=== PATIENT | female | born 1965 | race Caucasian/White ===

== ENCOUNTER → 2018-04-08 | Outpatient (CLI) | payer BC ==
--- NOTE | 2018-04-08 10:16 | MR ---
EXAMINATION TYPE: MR hand RT wo con DATE OF EXAM: 04/08/2018 COMPARISON: None HISTORY: Ring Finger pain / Mass for 2.5 months per patient and order. No injury. Standard multiplanar, multisequence MRI departmental protocol Multiplanar, multisequence images of the right hand were acquired. FINDINGS: Bone marrow signal intensity is fairly well preserved throughout the visualized portions of hand including metacarpals and phalanges. Mild to moderate joint space loss throughout the phalanges is present. No significant spurring is present. A vitamin E marker is placed at level of palpable abnormality radial aspect fourth finger at level of DIP joint. There is loss of normal subcutaneous fat at this level with vague area of T1 hypointensit y and T2 hyperintensity seen on coronal images 7 and 8 measuring 5 mm long axis parallel to the phala nges, it measures roughly 3.5 x 2.0 mm axial image 21. No adjacent cortical disruption identified. Ev aluation noted suboptimal due to large pyrki-yr-faey and lack of IV contrast. Remainder of the hand shows no additional suspicious soft tissue lesions. No worrisome fluid collecti ons are identified. IMPRESSION: Suboptimal study with small subcutaneous lesion radial aspect fourth DIP joint corresponding to palpa ble abnormality as detailed above favored nonaggressive or benign. Consider orthopedic hand records specialist to further assess. Consider MRI imaging surveillance especially if lesion grows.
== END | disposition home or self-care (01) ==
LOC: RADMRIMAIN 08:33
PROVIDERS: ATTEND Orthopaedic Surgery
DX: M25.841 Other specified joint disorders, right hand (principal)

== ENCOUNTER → 2018-09-04 | Outpatient (CLI) | payer BC ==
[2018-09-04 14:21] LABS: Basophils # (A) 0.1 k/uL (0-0.2); Basophils % (A) 1 %; Eosinophils # (A) 0.1 k/uL (0-0.7); Eosinophils % (A) 1 %; HCT 39.2 % (34.0-46.0); HGB 13.1 gm/dL (11.4-16.0); Lymphocytes # (A) 1.3 k/uL (1.0-4.8); Lymphocytes % (A) 13 %; MCH 32.1 pg (25.0-35.0); MCHC 33.4 g/dL (31.0-37.0); MCV 96.2 fL (80.0-100.0); Mean Platelet Volume 6.4; Monocytes # (A) 0.3 k/uL (0-1.0); Monocytes % (A) 3 %; Neutrophils # (A) 8.2 k/uL (1.3-7.7); Neutrophils % (A) 82 %; Platelet Count 293 k/uL (150-450); RBC 4.08 m/uL (3.80-5.40); RDW 11.7 % (11.5-15.5)
== END | disposition home or self-care (01) ==
LOC: LABPAT 13:38
PROVIDERS: ATTEND Surgery
DX: Z01.812 Encounter for preprocedural laboratory examination (principal); K43.0 Incisional hernia with obstruction, without gangrene
CPT/HCPCS: 36415; 85025; 86850; 86900; 86901

== ENCOUNTER 2018-09-13 08:03 | Day surgery (SDC) | payer BC ==
[2018-09-12 10:56] VITALS: BMI 38.0
[~2018-09-13 08:03] MED LIST: HEPARIN SODIUM,PORCINE 5,000 UNIT/ML 1 ML VIAL SQ ONE; ceFAZolin IN SWFI 2 GM/20 ML SYRINGE IVP ONE
[2018-09-13] MEDS ORDERED: MORPHINE SULFATE 2 MG/ML SYRINGE IV PRN (08:46)
[2018-09-13] MEDS ORDERED: ONDANSETRON 4 MG/2 ML VIAL IVP ONE ×2 (08:54→11:55)
[2018-09-13] MEDS ORDERED: DEXAMETHASONE SOD PHOS (MDV) 100 MG/10 ML VIAL IV ONE (08:55)
[2018-09-13] MEDS ORDERED: LACTATED RINGERS 1,000 ML IV SCH (09:00)
--- NOTE | 2018-09-13 09:44 | P.GSHP ---
History of Present Illness H&P Date: 09/13/18 Chief Complaint: Incarcerated incisional hernia recurrent Patient presents today for repair incarcerated incisional hernia. Patient has a history of previous hernia repair. Patient has had multiple other abdominal surgeries. She has had wounds postoperatively that required healing by secondary intention. The patient had a previous repair using a onlay Prolene mesh. The hernia currently is at the upper aspect of her incision in the to the left. Mild pain at times. No nausea or vomiting. No change in bowel habits. Past Medical History Past Medical History: Cancer, GERD/Reflux, Hyperlipidemia, Hypertension Additional Past Medical History / Comment(s): MALIGNANT MELANOMA/SKIN/LT SHOULDER 06/1999, resolving cold sx., just finished antibiotics & steroids History of Any Multi-Drug Resistant Organisms: None Reported Past Surgical History: Adenoidectomy, Hernia Repair, Hysterectomy, Tonsillectomy , Tubal Ligation Additional Past Surgical History / Comment(s): RT FOOT SURGERY FOR PLANTAR FASCIITIS, oophorectomy-bowel surg to repair tear in bowel from complications of oophorectomy Past Anesthesia/Blood Transfusion Reactions: Postoperative Nausea & Vomiting ( PONV) Smoking Status: Never smoker - Past Family History Father Family Medical History: Prostate Disorder Additional Family Medical History / Comment(s): FATHER= PANCREATIC, PROSTATE, AND SKIN CA HX. MATERNAL AUNT= BREAST CA Medications and Allergies Home Medications Medication Instructions Recorded Confirmed Type Atenolol [Tenormin] 50 mg PO BID 06/01/14 09/13/18 History Losartan/Hydrochlorothiazide 1 tab PO DAILY 04/11/16 09/13/18 History [Losartan-Hctz 100-12.5 mg Tab] PARoxetine HCL 40 mg PO DAILY 04/11/16 09/13/18 History buPROPion XL [Wellbutrin XL] 150 mg PO DAILY 04/11/16 09/13/18 History Lansoprazole [Prevacid] 30 mg PO DAILY 09/12/18 09/13/18 History Simvastatin [Zocor] 20 mg PO HS 09/12/18 09/13/18 History Allergies Allergy/AdvReac Type Severity Reaction Status Date / Time Penicillins Allergy Severe Unknown Verified 09/13/18 08:35 Childhood hydromorphone HCl Allergy Hallucinati Verified 09/13/18 08:35 [From Dilaudid] ons Surgical - Exam Vital Signs Temp Pulse Resp BP Pulse Ox 97.2 F L 73 16 139/71 92 L 09/13/18 08:38 09/13/18 08:38 09/13/18 08:38 09/13/18 08:38 09/13/18 08:38 Physical exam: General: Well-developed, well-nourished HEENT: Normocephalic, sclerae nonicteric Abdomen: Nontender, nondistended, small incarcerated hernia just to the left and slightly above the superior extent of her previous incision, some fullness in the periumbilical region as well possible small reducible hernia there as well Extremities: No edema Neuro: Alert and oriented Results - Labs 09/13/18 08:45 Diabetes panel 09/13/18 Range/Units 08:45 Potassium 4.4 (3.5-5.1) mmol/L Pituitary panel 09/13/18 Range/Units 08:45 Potassium 4.4 (3.5-5.1) mmol/L Adrenal panel 09/13/18 Range/Units 08:45 Potassium 4.4 (3.5-5.1) mmol/L Assessment and Plan (1) Recurrent incisional hernia with incarceration Narrative/Plan: Will proceed with incisional herniorrhaphy with mesh at this time. Risks of bleeding, infection, recurrence, bladder and bowel injury, numbness, nerve injury were discussed with the patient. The patient understands and wishes to proceed. Current Visit: Yes Status: Acute Code(s): K43.0 - INCISIONAL HERNIA WITH OBSTRUCTION, WITHOUT GANGRENE SNOMED Code(s): 621247069
[2018-09-13] MEDS ORDERED: ePHEDrine SULFATE/0.9% NACL/PF 50 MG/5 ML SYRINGE IV ONE (09:59)
[2018-09-13] MEDS ORDERED: MIDAZOLAM 2 MG/2 ML VIAL ONE (09:59)
[2018-09-13] MEDS ORDERED: LIDOCAINE 1% INJ 10MG/ML (20 ML MDV) ONE (09:59)
[2018-09-13] MEDS ORDERED: PROPOFOL 10 MG/ML 20 ML VIAL IV ONE (09:59)
[2018-09-13] MEDS ORDERED: fentaNYL (PF) 50 MCG/ML 2 ML AMP ONE (09:59)
[2018-09-13] MEDS ORDERED: ROCURONIUM BROMIDE 10 MG/ML 10 ML VIAL IV ONE (09:59)
[2018-09-13] MEDS ORDERED: KETOROLAC 30 MG/ML 1 ML VIAL ONE (09:59)
[2018-09-13] MEDS ORDERED: BUPIVACAINE (PF) 0.25% 30 ML VIAL SQ ONE (10:20)
[2018-09-13] MEDS ORDERED: CLINDAMYCIN 150 MG/ML 4 ML VIAL IVPB ONE (10:25)
[2018-09-13] MEDS ORDERED: LACTATED RINGERS 1,000 ML IV ONE (10:46)
[2018-09-13 11:40] VITALS: TEMP 98.4
[2018-09-13] MEDS ORDERED: HYDROcodone/APAP 5-325MG 1 EACH TAB PO PRN (11:56)
[2018-09-13] MEDS ORDERED: NALOXONE 0.4 MG/ML 1 ML VIAL IV PRN (11:56)
[2018-09-13 12:08] VITALS: RESP 16
--- NOTE | 2018-09-13 12:13 | P.OP ---
Date of Procedure: 09/13/18 Procedure(s) Performed: PREOPERATIVE DIAGNOSIS: Incarcerated recurrent incisional hernia POSTOPERATIVE DIAGNOSIS: Same x 2 PROCEDURE: Repair recurrent incarcerated incisional hernia with mesh x2 SURGEON: Josselin EBL: Minimal ANESTHESIA: Gen. COMPLICATIONS: None OPERATIVE PROCEDURE: Patient placed on the operating table in the supine position. Abdomen was prepped and draped in usual sterile fashion. The previous incision was re-incised superiorly. Incision took place from the immediate infraumbilical location to the supraumbilical location. Dissection through the subcutaneous tissues took place using electrocautery. The fascia was circumferentially exposed. The patient had evidence of previous onlay mesh at about the level of the umbilicus inferiorly. The patient had 2 fascial defects present in the supra umbilical region. Both measuring approximately 1.5 cm in diameter. These were by approximately 2.5-3 cm. I chose to dissect the preperitoneal space at both locations and place a ventral X4.3 centimeter mesh in the preperitoneal space. These mesh were sutured in place using trans-fascial 0 Ethibond sutures. The defects in the fascia were closed horizontally using [id number] 0 Ethibond sutures. The subcutaneous tissue then closed using interrupted 2-0 Vicryl sutures. The umbilicus was tacked back down using a 3-0 Vicryl suture. The skin was closed using viet. Sterile dressings were applied. DISPOSITION: Stable to recovery room
[2018-09-13 12:16] VITALS: BP 102/65; PULSE 85
[2018-09-13] MEDS ORDERED: HYDROcodone/APAP 5-325MG 1 EACH TAB PO ONE (12:20)
== END 2018-09-13 13:21 | disposition home or self-care (01) ==
LOC: OR 08:03
PROVIDERS: ATTEND Surgery
DX: K43.0 Incisional hernia with obstruction, without gangrene (principal); K21.9 Gastro-esophageal reflux disease without esophagitis; E78.5 Hyperlipidemia, unspecified; I10 Essential (primary) hypertension; Z85.820 Personal history of malignant melanoma of skin; Z80.42 Family history of malignant neoplasm of prostate; Z80.0 Family history of malignant neoplasm of digestive organs; Z80.8 Family history of malignant neoplasm of other organs or systems; Z79.899 Other long term (current) drug therapy; Z88.5 Allergy status to narcotic agent; Z88.0 Allergy status to penicillin
CPT/HCPCS: 49561; 49568; S2900; 84132; 86850; 86900; 86901; 88302

== ENCOUNTER → 2020-02-27 | Outpatient (CLI) | payer BC | END | disposition home or self-care (01) | LOC: LABWHC1 06:58 | PROVIDERS: ATTEND Family Medicine | DX: Z20.828 Contact with and (suspected) exposure to other viral communicable diseases (principal) ==

== ENCOUNTER → 2021-05-12 | Outpatient (CLI) | payer BC ==
--- NOTE | 2021-05-12 12:04 | FL ---
EXAMINATION TYPE: FL barium swallow DATE OF EXAM: 05/12/2021 CLINICAL INDICATION: 55-year-old female R1 3.10, unspecified dysphasia, coughing episodes, gagging, r eports throat spasms. History of acid reflux. COMPARISON: None Total Fluoroscopy Time: 1 minute 47 seconds 37 images obtained. FINDINGS: The swallowing mechanism is normal and hypopharyngeal anatomy is preserved. The cervical and thoracic portions have a normal course and caliber. Minimal occasional tertiary peristaltic waves are noted. The mucosa is normal and no persistent filling defect is encountered. No hiatal hernia is present. Gastroesophageal reflux could not be elicited with Valsalva or positiona l maneuvers. Incidental, there is some generalized gastric fold thickening noted. This may be secondary to partial distention. IMPRESSION: 1. Minimal, age-related tertiary peristaltic waves. Otherwise, unremarkable esophagram. 2. Incidental, generalized gastric fold thickening may be secondary to partial distention of the stom ach. If any upper abdominal pain, chronic gastritis is possible. Clinically correlate.
== END | disposition home or self-care (01) ==
LOC: RADUSWWP 09:47
PROVIDERS: ATTEND Otolaryngology
DX: R13.10 Dysphagia, unspecified (principal); K31.89 Other diseases of stomach and duodenum
CPT/HCPCS: 74220

== ENCOUNTER → 2021-06-07 | Outpatient (CLI) | payer BC ==
--- NOTE | 2021-06-07 13:33 | US ---
EXAMINATION TYPE: US thyroid st tissue head/neck DATE OF EXAM: 06/07/2021 COMPARISON: CTA chest 2016 CLINICAL HISTORY: E07.9 thyromegaly. Difficulty swallowing GLAND SIZE: Right Lobe: 5.0 x 1.7 x 1.6 cm Overall Parenchyma: heterogenous Left Lobe: 4.8 x 1.6 x 1.6 cm Overall Parenchyma: heterogeneous Isthmus Thickness: 0.4 cm NODULES RIGHT: # of nodules measured on right: 0 LEFT: # of nodules measured on left: 0 ISTHMUS: # of nodules measured in the isthmus: 0 Bilateral neck scanned, no evidence of lymphadenopathy. Slightly heterogeneous normal-sized thyroid without discrete nodule. Findings correlate with [address] CT[address] IMPRESSION: As above. No suspicious nodules.
== END | disposition home or self-care (01) ==
LOC: RADUSWWP 12:24
PROVIDERS: ATTEND Otolaryngology
DX: E07.9 Disorder of thyroid, unspecified (principal)
CPT/HCPCS: 76536

== ENCOUNTER → 2021-06-14 | Outpatient (CLI) | payer BC ==
[2021-06-15 06:15] LABS: Thyroid Peroxidase Antibodies <9.0 U/mL (0.0-33.0)
== END | disposition home or self-care (01) ==
LOC: LABWHC1 15:29
PROVIDERS: ATTEND Otolaryngology
DX: E07.9 Disorder of thyroid, unspecified (principal)
CPT/HCPCS: 36415; 84443; 86376; 86800

== ENCOUNTER → 2022-04-06 | Outpatient (CLI) | payer BC ==
[2022-04-06 13:39] VITALS: BP 134/81; PULSE 72; RESP 16; TEMP 98.9; BMI 36.4
--- NOTE | 2022-04-06 15:33 | P.HPBAR ---
Bariatric H&P - History & Physicial H&P Date: 04/06/22 History & Physicial: Visit/CC: Initial Visit Patient initial contact: Initial weight: 94.801 kg Initial weight in pounds: 209.00 Height: 5 ft 3.5 in Initial BMI: 36.4 Last weight: Current weight: 94.801 kg Current weight in pounds: 209.00 Current BMI: 36.4 Shedd body weight (based on NIH guidelines): 53.297 kg Excess body weight loss: 0.0% The patient is a 56 year-old F who presents for Bariatric Assessment. 56-year-old female known to our service. Patient here to discuss surgical options for weight loss. Patient with history of previous incisional hernia repair after hysterectomy with bowel injury in the past. Patient's BMI currently 36. Suffers from hypertension, hypercholesterolemia, depression, and GERD. Patient states she has been on antiacids for the last 10 years or so. She believes she had an upper endoscopy in the past. No history of known hiatal hernia. No DVT. No tobacco use for the last 20 years. Patient states she wants to be sure she does not have an open bariatric Review of Systems The patient denies any acute changes in vision or hearing, no dysphagia or odynophagia, no chest pain or shortness of breath, no dysuria or hematuria, no headache, no runny nose, no rectal bleeding or melena, no unexplained weight loss Past Medical History Past Medical History: Cancer Additional Past Medical History / Comment(s): MALIGNANT MELANOMA/SKIN/LT SHOULDER 06/1999.PLANTAR FASCIITIS SINCE JANUARY 2014- MEDROL DOSE PAC 04/2014 History of Any Multi-Drug Resistant Organisms: None Reported Past Surgical History: Adenoidectomy, Hernia Repair, Hysterectomy, Tonsillectomy, Tubal Ligation Additional Past Surgical History / Comment(s): RT FOOT SURGERY 04/10/14 BY FOR PLANTAR FASCIITIS, ovary removed Past Anesthesia/Blood Transfusion Reactions: Postoperative Nausea & Vomiting (PONV) Smoking Status: Unknown if ever smoked - Past Family History Father Family Medical History: Prostate Disorder Additional Family Medical History / Comment(s): FATHER= PANCREATIC, PROSTATE, AND SKIN CA HX. MATERNAL AUNT= BREAST CA Surgical - Exam Vital Signs Temp Pulse Resp BP 98.9 F 72 16 134/81 04/06/22 13:36 04/06/22 13:36 04/06/22 13:36 04/06/22 13:36 Physical exam: General: Well-developed, well-nourished HEENT: Normocephalic, sclerae nonicteric Abdomen: Nontender, nondistended, prior scars noted Extremities: No edema Neuro: Alert and oriented Bariatric Assessment & Plan (1) Obesity (BMI 30-39.9) Narrative/Plan: 56-year-old female with obesity and comorbidities. Patient is interested in surgical weight loss. She is more interested in sleeve gastrectomy. We discussed the risk and benefits of the procedures in detail. The patient is made aware that increased reflux with sleeve gastrectomy would be of some concern given the patient's history of prior reflux. We also discussed the slight increased risks of iatrogenic injury as a result of her previous surgeries and hernia repairs with mesh. The patient is borderline from a BMI standpoint. After our discussion she plans to consider her options further. If she would like to proceed with sleeve gastrectomy patient does require a supervised weight loss. Would recommend repeat EGD in 1-2 months prior to completion of her supervised weight loss. Status: Acute Bariatric Checklist Checklist: Plan: Checklist: EGD: 1. Hiatal hernia: 2. H. Pylori: HgbA1c: Vitamin D: Smoking: Never smoker Primary care physician referral: Josselin Leigh Psychiatry clearance: Cardiology clearance: Sleep study: Diet journal: VTE risk score: VTE risk level: Rehab needs at discharge:
== END ==
LOC: BARWHC3 13:03
PROVIDERS: ATTEND Surgery
DX: E66.9 Obesity, unspecified (principal); I10 Essential (primary) hypertension; E78.00 Pure hypercholesterolemia, unspecified; F32.A Depression, unspecified; Z68.36 Body mass index [BMI] 36.0-36.9, adult; Z88.0 Allergy status to penicillin; Z88.5 Allergy status to narcotic agent
CPT/HCPCS: 99202

== ENCOUNTER → 2023-03-08 | Outpatient (CLI) | payer BC ==
--- NOTE | 2023-03-12 12:26 | MR ---
EXAMINATION TYPE: MR sacroiliac joints wo con DATE OF EXAM: 03/08/2023 COMPARISON: 12/05/2011 HISTORY: Pain in left sacroiliac joint CONTRAST: Performed utilizing 0 mL intravenous Gadavist gadolinium contrast. TECHNIQUE: Multiplanar, multiecho imaging on a 3.0 Brenda magnet is performed through the sacroiliac j oints. FINDINGS: Sacroiliac joints appear patent bilaterally. No suspicious osseous erosions are evident. No suspiciou s signal abnormality within the sacroiliac joints is evident. Note is made of some disc bulging at L5-S1. Spinal canal stenosis is not identified. Some disc bulgin g extends into the left foramen with nerve root contact. Correlate with left S1 radicular symptoms. L eft paracentral disc herniation displacing the left S1 nerve root in the lateral recess is likely pre sent. Nerve root is displaced and compressed compared to the right. IMPRESSIONS: 1. Sacroiliac joints appear intact as visualized. 2. Disc bulging L5-S1 in the left paracentral left lateral direction with moderate impingement within the foramen as well as displacement in the spinal canal and lateral recess. Correlate with left S1 r adicular symptoms.
== END | disposition home or self-care (01) ==
LOC: RADMRIMAIN 16:09
PROVIDERS: ATTEND Internal Medicine Rheumatology
DX: M53.3 Sacrococcygeal disorders, not elsewhere classified (principal); M51.37 Other intervertebral disc degeneration, lumbosacral region
CPT/HCPCS: 72195

== ENCOUNTER 2024-07-09 02:43 | Emergency (ER) | payer BC ==
[2024-07-09 02:47] VITALS: RESP 18
--- NOTE | 2024-07-09 03:05 | ED ---
General Adult HPI - General Source: patient, RN notes reviewed Mode of arrival: ambulatory Limitations: no limitations <Moises Soriano - Last Filed: 07/09/24 03:03> <Mohinder Wallace - Last Filed: 07/09/24 04:06> - General Chief complaint: Extremity Injury, Upper Stated complaint: fall, left shoulder, face Time Seen by Provider: 07/09/24 02:56 - History of Present Illness Initial comments: 59-year-old female presents emergency department chief complaint of a fall. Patient states she fell down her steps in her home. Patient states that there was no loss conscious. Patient does complain of left shoulder pain and left- sided facial pain. Patient denies any blood thinners. Patient states that she had a mechanical fall there is no prior dizziness episodes. She does have noted bruising across the left side of her face she states pain in her shoulder is worse with movement and across her clavicle and chest region. States she has essentially no pain at rest. (Moises Soriano) - Related Data Home Medications Medication Instructions Recorded Confirmed RX: atenoloL [Tenormin] 50 mg PO BID 06/01/14 09/13/18 Losartan/Hydrochlorothiazide 1 tab PO DAILY 04/11/16 09/13/18 [Losartan-Hctz 100-12.5 mg Tab] PARoxetine HCL 40 mg PO DAILY 04/11/16 09/13/18 buPROPion XL [Wellbutrin XL] 150 mg PO DAILY 04/11/16 09/13/18 Lansoprazole [Prevacid] 30 mg PO DAILY 09/12/18 09/13/18 Simvastatin [Zocor] 20 mg PO HS 09/12/18 09/13/18 Previous Rx's Medication Instructions Recorded Hydrocodone/Acetaminophen [[place] 1 tab PO Q6HR PRN 3 Days #12 tab 09/13/18 5-325] HYDROcodone/APAP 5-325MG [[place] 1 tab PO Q6HR PRN #12 tab 07/09/24 5-325] Allergies Allergy/AdvReac Type Severity Reaction Status Date / Time Penicillins Allergy Severe Unknown Verified 07/09/24 02:47 Childhood hydromorphone HCl Allergy Hallucinati Verified 07/09/24 02:47 [From Dilaudid] ons Review of Systems ROS Other: All systems not noted in ROS Statement are negative. <Moises Soriano Dylan - Last Filed: 07/09/24 03:03> ROS Other: All systems not noted in ROS Statement are negative. <Mohinder Wallace - Last Filed: 07/09/24 04:06> ROS Statement: Those systems with pertinent positive or pertinent negative responses have been documented in the HPI. Past Medical History Past Medical History: Cancer Additional Past Medical History / Comment(s): MALIGNANT MELANOMA/SKIN/LT SHOULDER 06/1999.PLANTAR FASCIITIS SINCE JANUARY 2014- MEDROL DOSE PAC 04/2014 History of Any Multi-Drug Resistant Organisms: None Reported Past Surgical History: Adenoidectomy, Hernia Repair, Hysterectomy, Tonsillectomy, Tubal Ligation Additional Past Surgical History / Comment(s): RT FOOT SURGERY 04/10/14 BY FOR PLANTAR FASCIITIS, ovary removed Past Anesthesia/Blood Transfusion Reactions: Postoperative Nausea & Vomiting (PONV) Past Psychological History: No Psychological Hx Reported Smoking Status: Never smoker Past Alcohol Use History: None Reported Past Drug Use History: None Reported - Past Family History Father Family Medical History: Prostate Disorder Additional Family Medical History / Comment(s): FATHER= PANCREATIC, PROSTATE, AND SKIN CA HX. MATERNAL AUNT= BREAST CA <Moises Soriano - Last Filed: 07/09/24 03:03> General Exam Limitations: no limitations General appearance: alert, in no apparent distress Head exam: Present: atraumatic, normocephalic, normal inspection Eye exam: Present: normal appearance, PERRL, EOMI, periorbital swelling, periorbital tenderness (Maxillary). Absent: scleral icterus, conjunctival injection ENT exam: Present: normal exam, normal oropharynx, mucous membranes moist, TM's normal bilaterally, normal external ear exam Neck exam: Present: normal inspection, full ROM. Absent: tenderness, meni ngismus, lymphadenopathy Respiratory exam: Present: normal lung sounds bilaterally. Absent: respiratory distress, wheezes, rales, rhonchi, stridor Cardiovascular Exam: Present: regular rate, normal rhythm, normal heart sounds. Absent: systolic murmur, diastolic murmur, rubs, gallop, clicks Extremities exam: Present: other (Shoulder moderate tenderness, pain with range of motion limited range of motion neurovascular intact) <Moises Soriano - Last Filed: 07/09/24 03:03> Course Vital Signs 07/09/24 02:45 Temperature 97.8 F Pulse Rate 74 Respiratory 18 Rate Blood Pressure 120/78 O2 Sat by Pulse 98 Oximetry Medical Decision Making <Mohinder Wallace - Last Filed: 07/09/24 04:06> - Medical Decision Making Was pt. sent in by a medical professional or institution (, PRAKASH, CHIEF OF POLICE, urgent care, hospital, or correction...) When possible be specific @ -No Did you speak to anyone other than the patient for history (EMS, parent, family, police, friend...)? What history was obtained from this source @ -No Did you review nursing and triage notes (agree or disagree)? Why? @ -I reviewed and agree with nursing and triage notes Were old charts reviewed (outside hosp., previous admission, EMS record, old EKG, old radiological studies, urgent care reports/EKG's, correction records)? Report findings @ -No old charts were reviewed Differential Diagnosis: Traumatic injury from fall, facial bone fracture, intracranial hemorrhage, fracture of the shoulder or left clavicle EKG interpreted by me (3pts min.). @ -As above X-rays interpreted by me (1pt min.). @ -X-rays of the left shoulder and chest are negative for traumatic injury CT interpreted by me (1pt min.). @ -CT of the facial bones, brain, and cervical spine negative for acute bony abnormality, no intracranial hemorrhage U/S interpreted by me (1pt. min.). @ -None done What testing was considered but not performed or refused? (CT, X-rays, U/S, labs)? Why? @ -None What meds were considered but not given or refused? Why? @ -None Did you discuss the management of the patient with other professionals (professionals i.e. , PRAKASH, CHIEF OF POLICE, lab, RT, psych nurse, licensed social worker, dipper fish, teacher, correctional probation officer, telephonic case manager)? Give summary @ -No Was smoking cessation discussed for >3mins.? @ -No Was critical care preformed (if so, how long)? @ -No Were there social determinants of health that impacted care today? How? (Homelessness, low income, unemployed, alcoholism, drug addiction, transportation, low edu. Level, literacy, decrease access to med. care, [place] [facility], rehab)? @ -No Was there de-escalation of care discussed even if they declined (Discuss DNR or withdrawal of care, Hospice)? DNR status @ -No What co-morbidities impacted this encounter? (DM, HTN, Smoking, COPD, CAD, Cancer, CVA, ARF, Chemo, Hep., AIDS, mental health diagnosis, sleep apnea, morbid obesity)? @ -None Was patient admitted / discharged? Hospital course, mention meds given and route, prescriptions, significant lab abnormalities, going to OR and other pertinent info. @ -[59-year-old female status post fall down stairs. Patient's chief complaint is left shoulder pain with facial abrasion hematoma. Imaging is performed of the chest, shoulder, brain, facial bones and neck. No definitive traumatic injury identified. Patient is instructed to rest, ice to the area, and follow- up with her primary care provider. Undiagnosed new problem with uncertain prognosis? @ -No Drug Therapy requiring intensive monitoring for toxicity (Heparin, Nitro, Insulin, Cardizem)? @ -No Were any procedures done? @ -No Diagnosis/symptom? @ -Fall, facial contusion, shoulder contusion, AC sprain Acute, or Chronic, or Acute on Chronic? @ -[Acute Uncomplicated (without systemic symptoms) or Complicated (systemic symptoms)? @ -Default Side effects of treatment? @ -No Exacerbation, Progression, or Severe Exacerbation? @ -No Poses a threat to life or bodily function? How? (Chest pain, [place], [place], pneumonia, PE, COPD, DKA, ARF, appy, cholecystitis, CVA, Diverticulitis, Homicidal, Suicidal, threat to staff... and all critical care pts) @ -No (Mohinder Wallace) Disposition <Moises Soriano - Last Filed: 07/09/24 03:03> Is patient prescribed a controlled substance at d/c from ED?: No Time of Disposition: 03:59 <Mohinder Wallace - Last Filed: 07/09/24 04:06> Clinical Impression: Strain of shoulder, Facial contusion Disposition: HOME SELF-CARE Condition: Fair Instructions (If sedation given, give patient instructions): Shoulder Sprain (ED) Additional Instructions: Follow up with primary care provider in 1-2 days. If you have any new or worsening symptoms, please return to the Emergency Center. Ice the shoulder for 15-20 minutes at a time 2-3 times a day. Alternate Tylenol and Motrin as needed for pain control. Prescriptions: HYDROcodone/APAP 5-325MG [[place] 5-325] 1 tab PO Q6HR PRN #12 tab PRN Reason: Pain Referrals: Lu Schwab MD [Primary Care Provider] - 1-2 days
[2024-07-09] MEDS: HYDROcodone/APAP 10-325MG 1 EACH TAB PO ONE (03:36)
--- NOTE | 2024-07-09 03:40 | CT ---
EXAM: CT Head Without Intravenous Contrast CLINICAL HISTORY: ITS.REASON CT Reason: pain TECHNIQUE: Axial computed tomography images of the head/brain without intravenous contrast. CTDI is 25.8 mGy and DLP is 733.9 mGy-cm. This CT exam was performed using one or more of the following dose reduction techniques: automated exposure control, adjustment of the mA and/or kV according to patient size, and/or use of iterative reconstruction technique. COMPARISON: No relevant prior studies available. FINDINGS: Brain: Age-related cerebral volume loss. Periventricular and subcortical white matter hypoattenuation, consistent with chronic microangiopathy. No acute intracranial hemorrhage. No midline shift or mass effect. Ventricles: Unremarkable. No ventriculomegaly. Bones/joints: Unremarkable. No acute fracture. Soft tissues: LEFT facial soft tissue swelling. Sinuses: Unremarkable as visualized. No acute sinusitis. Mastoid air cells: Unremarkable as visualized. No mastoid effusion. IMPRESSION: 1. No acute intracranial hemorrhage. No midline shift or mass effect. 2. LEFT facial soft tissue swelling. EXAM: CT Cervical Spine Without Intravenous Contrast CLINICAL HISTORY: ITS.REASON CT Reason: pain TECHNIQUE: Axial computed tomography images of the cervical spine without intravenous contrast. CTDI is 13.9 mGy and DLP is 361.6 mGy-cm. This CT exam was performed using one or more of the following dose reduction techniques: automated exposure control, adjustment of the mA and/or kV according to patient size, and/or use of iterative reconstruction technique. COMPARISON: No relevant prior studies available. FINDINGS: The vertebral body heights are maintained. The craniocervical junction is intact. The atlanto-dens interval is maintained. The dens is intact. There is no spondylolisthesis. Multilevel cervical spondylosis and degenerative disc disease. Straightening of the cervical lordosis. The unenhanced neck soft tissues are grossly unremarkable. The visualized lung apices are grossly clear. IMPRESSION: No acute fracture or subluxation of the cervical spine.
--- NOTE | 2024-07-09 03:43 | CT ---
EXAM: CT Maxillofacial Without Intravenous Contrast CLINICAL HISTORY: ITS.REASON CT Reason: fall TECHNIQUE: Axial computed tomography images of the face without intravenous contrast. CTDI is 25.8 mGy and DLP is 733.9 mGy-cm. This CT exam was performed using one or more of the following dose reduction techniques: automated exposure control, adjustment of the mA and/or kV according to patient size, and/or use of iterative reconstruction technique. COMPARISON: No relevant prior studies available. FINDINGS: The mandible is intact. Intact maxillary alveolus. The orbital rims and floors are intact. The intraorbital contents are grossly unremarkable. LEFT facial soft tissue swelling. Intact nasal bones, nasal septum, and maxillary spines. The zygomatic arches and pterygoid processes are intact. IMPRESSION: 1. No facial bone fracture. 2. LEFT facial soft tissue swelling.
--- NOTE | 2024-07-09 03:51 | XR ---
EXAM: XR Chest, 1 View CLINICAL HISTORY: ITS.REASON XR Reason: fall TECHNIQUE: Frontal view of the chest. COMPARISON: No relevant prior studies available. FINDINGS: Lungs: Unremarkable. No consolidation. Pleural space: Unremarkable. No pneumothorax. Heart: Cardiomegaly. Mediastinum: Unremarkable. Normal mediastinal contour. Bones/joints: Unremarkable. No acute fracture. IMPRESSION: No acute findings in the chest.
--- NOTE | 2024-07-09 03:57 | XR ---
EXAM: XR Left Shoulder Complete, 2 or More Views CLINICAL HISTORY: ITS.REASON XR Reason: fall TECHNIQUE: Two or more views of the left shoulder. COMPARISON: No relevant prior studies available. FINDINGS: Bones/joints: Diffuse osseous demineralization. No acute fracture or subluxation. Soft tissues: Unremarkable. IMPRESSION: No acute fracture or subluxation.
[2024-07-09 04:23] VITALS: BP 115/74; PULSE 79; TEMP 98
== END 2024-07-09 04:23 | disposition home or self-care (01) ==
LOC: EC 02:43
DX: S46.912A Strain of unspecified muscle, fascia and tendon at shoulder and upper arm level, left arm, initial encounter (principal); S00.83XA Contusion of other part of head, initial encounter; Z88.0 Allergy status to penicillin; Z88.5 Allergy status to narcotic agent; W10.9XXA Fall (on) (from) unspecified stairs and steps, initial encounter
CPT/HCPCS: 70450; 70486; 71045; 72125; 99284

== ENCOUNTER → 2024-07-29 | Outpatient (CLI) | payer BC ==
--- NOTE | 2024-07-29 15:15 | XR ---
EXAMINATION TYPE: XR ribs 4 views LT, XR shoulder 2 views LT DATE OF EXAM: 07/29/2024 COMPARISON: NONE CLINICAL INDICATION: Female, 59 years old with history of M25.512 Pain left shoulder W10.8XXD Fall; FINDINGS: Left RIBS: There are age indeterminate, mildly displaced fractures of the left anterolateral second, third, and fourth ribs. No other displaced rib fractures seen. Visualized left hemithorax is clear. Left shoulder: There is oma one and half shaft's width of superior displacement at the AC joint. Some adjacent sof t tissue swelling. Subacromial space is preserved. No acute fracture seen. IMPRESSION: 1. Left RIBS: Age-indeterminate mildly displaced fractures left anterolateral second, third, and four th ribs. Clinically correlate. 2. Left shoulder: AC joint dissociation with joint capsule disruption and suspected disruption of the coracoclavicular ligaments as well. Superior positioning of the distal clavicle by one and a half sh aft's width relative to the acromion. [facility], , 07/29/2024 3:13 PM
== END | disposition home or self-care (01) ==
LOC: RADXRMAIN 14:17
PROVIDERS: ATTEND Family Medicine
DX: S22.42XD Multiple fractures of ribs, left side, subsequent encounter for fracture with routine healing (principal); M25.512 Pain in left shoulder; W10.8XXD Fall (on) (from) other stairs and steps, subsequent encounter